=== PATIENT | female | born 1955 | race Caucasian/White ===

== ENCOUNTER → 2019-08-14 | Outpatient (CLI) | payer OTHER ==
--- NOTE | 2019-08-14 12:10 | WOMENS IMAGING REPORT ---
EXAM DESCRIPTION: 3D DX MAMMO BILAT; U/S BREAST UNILAT LIMITED COMPLETED DATE/TIME: 08/14/2019 9:32 am; 08/14/2019 9:57 am REASON FOR STUDY: Z. BILAT DX; RT BREAST Z N63.10 UNSPECIFIED LUMP IN THE RIGHT BREAST, UN SPECIFIED TORIN; Z01. ENCOUNTER FOR OTHER SPECIFIED SPECIAL EXAMINATIONS palpable lump right breast. COMPARISON: None. EXAM PARAMETERS: Standard craniocaudal and mediolateral oblique views of each breast recorded using digital acquisition and breast tomosynthesis. Right breast ultrasound in the area palpable concern was also performed. Read with the assistance of CAD: .[employer] Operator Version 9.2 LIMITATIONS: None. FINDINGS: RIGHT BREAST MASSES: No suspicious masses. CALCIFICATIONS: No new or suspicious calcifications. ARCHITECTURAL DISTORTION: None. ASYMMETRY: There is a persistent, new focal asymmetry in the medial superior right breast in the area indicated by the palpable marker. OTHER: No other significant findings. LEFT BREAST MASSES: No suspicious masses. CALCIFICATIONS: No new or suspicious calcifications. ARCHITECTURAL DISTORTION: None. ASYMMETRY: None noted. OTHER: No other significant finding. The patient was taken ultrasound for further evaluation of the focal asymmetry palpable area of charito rn. The right breast was scanned. At the 1 o'clock position in the area of palpable concern, there is a ill-defined hypoechoic mass with angular margins and posterior acoustic shadowing measuring 1.9 x 1.3 by 1.7 cm. This corresponds with the mammographic finding. Right axilla was scanned to evaluate fo r adenopathy. There is no right axillary adenopathy. IMPRESSION: Suspicious mass in the right breast at the 1 o'clock position. Ultrasound-guided biopsy is recommended. BREAST DENSITY: c. The breasts are heterogeneously dense, which may obscure small masses. BIRAD: ASSESSMENT: 5 Highly suggestive of malignancy. Biopsy should be performed in the absence of clinical contra-indication. RECOMMENDATION: RECOMMENDED FOLLOW UP: Birads 5: Biopsy should be performed in the absence of clinic al contraindication. SPECIFIC INTERVENTION/IMAGING/CONSULTATION RECOMMENDED:The suspicious finding(s) amenable to US guide d core/vacuum assisted biopsy. COMMUNICATION:The imaging findings were not discussed with the patient. Her referring provider has be en notified of the findings. COMMENT: The patient has been notified of the results by letter per [place] requirements. Additional no tification policies are in place for contacting patient with suspicious or incomplete findings. Quality ID #[id number]: The [employer] recommends an annual screening mammogram for women aged 40 years or over. This facility utilizes a reminder system to ensure that all patients receive reminder letters, and/or direct phone calls for appointments. This includes reminders for routine scr eening mammograms, diagnostic mammograms, or other Breast Imaging Interventions when appropriate. Th is patient will be placed in the appropriate reminder system. TECHNICAL DOCUMENTATION: FINDING NUMBER: (1) ASSESSMENT: (1) JOB ID: [id number] 2010 [employer]- All Rights Reserved Reading location - IP/workstation name: [email or web address]
== END ==
LOC: WI 10:05
PROVIDERS: ATTEND Clinical Nurse Specialist Adult Health
DX: Z12.31 Encounter for screening mammogram for malignant neoplasm of breast (principal)
CPT/HCPCS: 76642; 77066; G0279; 77062

== ENCOUNTER → 2019-08-29 | Day surgery (SDC) | payer OTHER ==
[~2019-08-29] MED LIST: LIDOCAINE 1% INJ-PF (10 MG/ML) 30 ML SDV ONE
--- NOTE | 2019-09-05 15:58 | WOMENS IMAGING REPORT ---
EXAM DESCRIPTION: U/S BREAST BX; RIGHT DIAGNOSTIC MAMMO W/CAD COMPLETED DATE/TIME: 09/04/2019 8:26 am; 08/29/2019 1:51 pm REASON FOR STUDY: Z01.89 BREAST BIOPSY; Z01.89 RIGHT US BREAST BX FOR CLIP PLACEMENT COMPARISON: Mammograms and ultrasound 08/14/2019 TECHNIQUE: The procedure was discussed with the patient and the patient agreed to proceed. The patient was scanned and the area of interest in the upper inner quadrant about 7 cm from the nipp le of the right breast was localized. This correlates with the area of concern on prior imaging stud ies. This area was targeted for ultrasound-guided core biopsy. After sterile skin prep and 3.5 mL local lidocaine 1% skin and deep tissue anesthesia, a 14 gauge coa xial core biopsy needle was used to obtain several cores of tissue from the lesion. Under ultrasound guidance, a ribbon clip was placed in the areas sampled. There were no immediate post-procedure com plications. MAMMOGRAM: Post-procedure two view mammogram was acquired in the digital mammogram suite. The clip wa s in the expected location. No significant hematoma. Pathology yields a diagnosis of atypical papillary proliferation with foci suspicious for invasive ca rcinoma. Pathology is concordant. LIMITATIONS: None. FINDINGS: Ultrasound guided breast biopsy as described above. 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 SHE UNDERST ANDS THIS IS A MALIGNANT DIAGNOSIS WHICH REQUIRES FURTHER THERAPY. Patient medication list reviewed: Yes- Quality ID# [id number]:Eligible professional attests to documenting i n the medical record they obtained, updated, or reviewed the patient's current medications. TECHNICAL DOCUMENTATION: JOB ID: [id number] 2010 [employer]- All Rights Reserved Reading location - IP/workstation name: [email or web address]
== END ==
LOC: WI 12:40
PROVIDERS: ATTEND Clinical Nurse Specialist Adult Health
DX: Z01.89 Encounter for other specified special examinations (principal); C50.211 Malignant neoplasm of upper-inner quadrant of right female breast
CPT/HCPCS: 88342 ×2; 88341 ×2; 88305 ×2; 19083; 77065; J3490

== ENCOUNTER → 2019-10-07 | Outpatient (CLI) | payer OTHER ==
--- NOTE | 2019-10-07 12:59 | RADIOLOGY REPORT (SQ) ---
EXAM DESCRIPTION: NM MUGA REST IMAGES COMPLETED DATE/TIME: 10/07/2019 12:31 pm REASON FOR STUDY: ENCTR FOR SCREENING FOR CARDIOVASCULAR DISORDERS (Z13.6) COMPARISON: None. RADIONUCLIDE AND DOSE: 25.2 mCi technetium 99 M pertechnetate labeled red blood cells. ADDITIONAL DRUGS AND DOSES: None. TECHNIQUE: Radionuclide ventriculography is performed to assess left ventricular function. LIMITATIONS: None. FINDINGS: Heart rate: 69 bpm. Ejection fraction: 69%. End-diastolic volume: 126 cc. End systolic volume: 38 cc. IMPRESSION: 1. Normal left ventricular ejection fraction. TECHNICAL DOCUMENTATION: JOB ID: [id number] 2010 [employer]- All Rights Reserved Reading location - IP/workstation name: [email or web address]
== END ==
LOC: RAD 10:41
PROVIDERS: ATTEND Internal Medicine
DX: Z13.6 Encounter for screening for cardiovascular disorders (principal); C50.211 Malignant neoplasm of upper-inner quadrant of right female breast; Z08 Encounter for follow-up examination after completed treatment for malignant neoplasm; Z51.11 Encounter for antineoplastic chemotherapy
CPT/HCPCS: 78472; A9560; Q9969